=== PATIENT | male | born 1985 | race Caucasian/White ===

== ENCOUNTER 2019-02-25 01:43 | Emergency (ER) | payer OTHER ==
[2019-02-25 01:53] VITALS: BP 142/100; PULSE 79; RESP 20; TEMP 98
--- NOTE | 2019-02-25 02:09 | ED ---
Upper Extremity HPI - General Chief Complaint: Extremity Injury, Upper Stated Complaint: [facility] hand injury Source: patient, family Mode of arrival: ambulatory - History of Present Illness Initial Comments: 33-year-old male presenting today for chief complaint of left hand pain x < 1 hour. Pt moving an object/sign when a piece of metal folded down squeezing digits 4 & 5 between two pieces of metal. He denies significant laceration. Denies decreased range of motion or muscle weakness of the involved digits. Pt denies wrist pain, head injury, injury to the neck or back. Pt denies loss of finger nail or bruising under nail bed. Mainly review of systems negative, patient denies any recent fever, chills, shortness of breath, chest pain, back pain, abdominal pain, nausea or vomiting, numbness or tingling, dysuria or hematuria, constipation or diarrhea, headaches or visual changes, or any other complaints. upon arrival pt well appearing no acute distress. - Related Data Allergies Allergy/AdvReac Type Severity Reaction Status Date / Time No Known Allergies Allergy Verified 02/25/19 01:53 Review of Systems ROS Statement: Those systems with pertinent positive or pertinent negative responses have been documented in the HPI. ROS Other: All systems not noted in ROS Statement are negative. Past Medical History Past Medical History: No Reported History History of Any Multi-Drug Resistant Organisms: None Reported Past Surgical History: No Surgical Hx Reported Past Psychological History: No Psychological Hx Reported Smoking Status: Never smoker Past Alcohol Use History: None Reported Past Drug Use History: None Reported General Exam - General Exam Comments Initial Comments: General: The patient is awake and alert, in no distress, and does not appear acutely ill. Eye: +3 mm pupils are equal, round and reactive to light, extra-ocular movements are intact. No nystagmus. There is normal conjunctiva bilaterally. No signs of icterus. Ears, nose, mouth and throat: There are moist mucous membranes and no oral lesions. Neck: The neck is supple, there is no tenderness or JVD. Cardiovascular: There is a regular rate and rhythm. No murmur, rub or gallop is appreciated. Respiratory: Lungs are clear to auscultation, respirations are non-labored, breath sounds are equal. No wheezes, stridor, rales, or rhonchi. Gastrointestinal: Soft, non-distended, non-tender abdomen without masses or organomegaly noted. There is no rebound or guarding present. No CVA tenderness. Bowel sounds are unremarkable. Musculoskeletal: Normal ROM at the MTP DIP and PIP joints of all 5 digits of the hands bilaterally, no tenderness at digits 1-3, tender to ROM of digits 4&5 of the left hand. Strength 5/5 at the MTP DIP PIP of all 5 digits of the hands b/l . Sensation intact both proximal and distal to injury site. Radial pulses equal bilaterally 2+. Neurological: A&O x 3. CN II-XII intact, There are no obvious motor or sensory deficits. Coordination appears grossly intact. Speech is normal. Skin: Skin is warm and dry and no rashes or lesions are noted. Superficial skin tear of digits 4 & 5 on extensor surface. Psychiatric: Cooperative, appropriate mood & affect, normal judgment. Course Vital Signs 02/25/19 01:49 Temperature 98 F Pulse Rate 79 Respiratory 20 Rate Blood Pressure 142/100 O2 Sat by Pulse 100 Oximetry Medical Decision Making - Medical Decision Making 33-year-old male presenting today for chief complaint of fourth and fifth digit pain on the left hand. Physical examination revealed no limitations in range of motion or strength. Superficial skin tears. Patient tetanus up-to-date. Mild soft tissue swelling, some ecchymosis. Imaging studies revealed no acute osseous injury. Pt neurovascularly intact. At this time I feel pt is stable for discharge with primary care f/u. Return parameters were discussed at length the patient who verbalizes understanding patient was discharged appearing well. Disposition Clinical Impression: Hand crush injury, Finger injury Disposition: HOME SELF-CARE Condition: Good Instructions (If sedation given, give patient instructions): Crush Injury (ED) Additional Instructions: Please use medication as discussed. Please follow-up with family doctor in the next 4-5 days. Please return to emergency room if the symptoms increase or worsen or for any other concerns. Is patient prescribed a controlled substance at d/c from ED?: No Referrals: None,Stated [Primary Care Provider] - 1-2 days Time of Disposition: 02:23
--- NOTE | 2019-02-25 02:23 | XR ---
EXAM: XR Left Hand Complete, 3 or More Views CLINICAL HISTORY: ITS.REASON XR Reason: focus digits 4 5 TECHNIQUE: Frontal, lateral and oblique views of the left hand. COMPARISON: No relevant prior studies available. FINDINGS: Bones/joints: No acute fracture. No dislocation. Soft tissues: Unremarkable. No radiopaque foreign body. IMPRESSION: No acute findings.
== END 2019-02-25 02:47 | disposition home or self-care (01) ==
LOC: EC 01:43
DX: S67.22XA Crushing injury of left hand, initial encounter (principal); S61.215A Laceration without foreign body of left ring finger without damage to nail, initial encounter; S61.217A Laceration without foreign body of left little finger without damage to nail, initial encounter; W23.0XXA Caught, crushed, jammed, or pinched between moving objects, initial encounter; Y92.69 Other specified industrial and construction area as the place of occurrence of the external cause; Y99.0 Civilian activity done for income or pay
CPT/HCPCS: 99283

== ENCOUNTER → 2019-03-06 | Outpatient (CLI) | payer OTHER ==
--- NOTE | 2019-03-06 15:20 | XR ---
EXAMINATION TYPE: XR hand complete LT DATE OF EXAM: 03/06/2019 CLINICAL HISTORY: Left hand crushing injury with pain. TECHNIQUE: Frontal, lateral and oblique images of the left hand are obtained. COMPARISON: Left hand x-ray February 25, 2019. FINDINGS: There is no acute fracture/dislocation evident in the left hand. The joint spaces in the l eft hand appear within normal limits. The overlying soft tissue appears unremarkable. IMPRESSION: There is no acute fracture or dislocation in the left hand. No significant change from p rior.
== END | disposition home or self-care (01) ==
LOC: RADXRMAIN 14:54
PROVIDERS: ATTEND Emergency Medicine
DX: S67.195D Crushing injury of left ring finger, subsequent encounter (principal); S67.197D Crushing injury of left little finger, subsequent encounter

== ENCOUNTER 2020-10-07 03:22 | Emergency (ER) | payer OTHER ==
[2020-10-07 03:36] VITALS: BP 137/89; PULSE 85; RESP 18; TEMP 98.8
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
--- NOTE | 2020-10-07 04:16 | XR ---
EXAM: XR Bilateral Knees, 3 Views CLINICAL HISTORY: ITS.REASON XR Reason: pain TECHNIQUE: Three views of the bilateral knees. COMPARISON: No relevant prior studies available. FINDINGS: Bones/joints: Vacuum phenomenon is seen within the medial compartment of the left knee. No acute fracture. No dislocation. Trace left and small right joint effusions in the suprapatellar bursas. Soft tissues: No acute findings. IMPRESSION: Trace left and small right joint effusions in the suprapatellar bursas.
== END 2020-10-07 05:00 | disposition other institution (70) ==
LOC: EC 03:22
DX: M25.462 Effusion, left knee (principal); M25.461 Effusion, right knee
CPT/HCPCS: 99284